=== PATIENT | female | born 1955 ===

== ENCOUNTER → 2018-02-22 06:53 | Outpatient (CLI) | payer OTHER | END | disposition home or self-care (01) | LOC: RAD 06:53 → LAB 06:53 | DX: I10 Essential (primary) hypertension (principal); Z01.810 Encounter for preprocedural cardiovascular examination; Z01.811 Encounter for preprocedural respiratory examination; Z01.812 Encounter for preprocedural laboratory examination ==

== ENCOUNTER 2018-03-08 06:28 | Outpatient (CLI) | payer OTHER | END 2018-03-08 06:37 | disposition home or self-care (01) | LOC: LAB 06:28 | DX: E11.9 Type 2 diabetes mellitus without complications (principal); D68.8 Other specified coagulation defects; E86.0 Dehydration ==